=== PATIENT | male | born 1950 | race Caucasian/White ===

== ENCOUNTER 2020-08-29 06:59 | Observation (INO) ==
--- NOTE | 2020-08-21 10:23 | PAT Medication Instructions ---
Medication Instructions Date of Service August 21, 2020 Home Medications acetaminophen [Tylenol Extra Strength] 1,000 mg PO Q6H PRN carvedilol [Coreg] 25 mg PO QAM doxazosin 4 mg PO QAM finasteride 5 mg PO QAM ipratropium bromide [Atrovent HFA] 2 puff INHALATION Q8H PRN lisinopril 20 mg PO QAM metformin 1,000 mg PO BID pantoprazole [Protonix] 40 mg PO QAM sennosides [Senna-C] 8.6 mg PO BID tamsulosin 0.4 mg PO QAM DO NOT take the morning of surgery lisinopril 20 mg PO QAM metformin 1,000 mg PO BID sennosides [Senna-C] 8.6 mg PO BID Take morning of surgery With a small sip of water, OTHERWISE NOTHING TO EAT OR DRINK AFTER MIDNIGHT: acetaminophen [Tylenol Extra Strength] 1,000 mg PO Q6H PRN (if needed, may be taken up to four hours before surgery) carvedilol [Coreg] 25 mg PO QAM doxazosin 4 mg PO QAM finasteride 5 mg PO QAM ipratropium bromide [Atrovent HFA] 2 puff INHALATION Q8H PRN (if needed) pantoprazole [Protonix] 40 mg PO QAM tamsulosin 0.4 mg PO QAM Take evening before surgery acetaminophen [Tylenol Extra Strength] 1,000 mg PO Q6H PRN (if needed) ipratropium bromide [Atrovent HFA] 2 puff INHALATION Q8H PRN (if needed) metformin 1,000 mg PO BID sennosides [Senna-C] 8.6 mg PO BID Other Notes If you have any questions please call us at [phone] or [phone] or [phone] or [phone]
--- NOTE | 2020-08-22 09:59 | Anesthesiology Consultation ---
Date of Service August 22, 2020 Assessment & Plan (1) Encounter for pre-operative examination: - Abnormal preop EKG: Preop EKG done noting ST/TWA, consider inferolateral ischemia. Per 06/2020 PCP records, ? hx of heart failure with diminished EF. No further details. Preop cardiology clearance arranged for 08/26 (LUCERO Saxena). Awaiting cardiology clearance. - Per assessment on 08/22: Travel screen- Lives in [facility]. Uses PPE. No known COVID-19 positive contacts or current COVID-19 related symptoms. Patient states he was personally COVID positive mid-May. Patient states he tested positive while in rehab (he thinks this was [facility]). He says he was acutely ill from other issues (urologic) at time but does not feel any p articular COVID symptoms occurred at time of diagnosis (possibly fatigue > which has since improved since d/c from rehab). Poor historian. DOS is likely >90 days since initial positive COVID test ([facility] secretaries attempting to obtain official report/exact date of initial COVID positive test). Surgeon arranging preop COVID testing (done at [facility] 08/22). Results pending. - PCP office visit: 06/19/20: "Patient was admitted to [facility] on June 13, 2020 with acute renal failure. Patient was thought to have COVID-19 pneumonia and required intermittent dialysis. It was felt that he is acute renal failure secondary to prostate obstruction and he had a Ann catheter placed. Patient was discharged home on June 16, 2020.. Other diagnoses consisting of hepatitis C, anemia, heart failure with decreased ejection fraction of 40 to 45%." - Check BSG AM DOS Chart Review Chart Review: Patient seen in Pre Admission Testing Teaching & Discussion Pre-Anesthesia Teaching/Discussion Notes: Instructed NPO after midnight before surgery,except medications with 15 cc of water. Medication instructions provided according to the [facility] guidelines. History Surgery Operation Date: 08/29/20 12:35 Proposed Procedures p Transurethral Resection Prostate - Matthieu Hernandez DO Height/Weight Height: 5 ft 8 in Weight: 75.3 kg Allergies Allergy/AdvReac Type Severity Reaction Status Date / Time No Known Allergies Allergy Verified 08/15/20 12:17 Medications Home Medications Medication Instructions Recorded Confirmed Last Taken acetaminophen [Tylenol Extra 1,000 mg PO Q6H PRN 08/15/20 08/15/20 Unknown Strength] carvedilol [Coreg] 25 mg PO QAM 08/15/20 08/15/20 Unknown doxazosin 4 mg PO QAM 08/15/20 08/15/20 Unknown finasteride 5 mg PO QAM 08/15/20 08/15/20 Unknown ipratropium bromide [Atrovent HFA] 2 puff INHALATION Q8H PRN 08/15/20 08/15/20 U nknown lisinopril 20 mg PO QAM 08/15/20 08/15/20 Unknown metformin 1,000 mg PO BID 08/15/20 08/15/20 Unknown pantoprazole [Protonix] 40 mg PO QAM 08/15/20 08/15/20 Unknown sennosides [Senna-C] 8.6 mg PO BID 08/15/20 08/15/20 Unknown tamsulosin 0.4 mg PO QAM 08/15/20 08/15/20 Unknown Past Medical History Medical History (Updated 08/22/20 @ 12:04 by Radha Smith) GOOD (acute kidney injury) 06/2020- intermittent dialysis felt 2/2 prostate obstruction > improved kidney function Asthma stable Depression Diabetes mellitus, type 2 NIDDM Enlarged prostate GERD (gastroesophageal reflux disease) Gout hx Hypertension Exercise / Class Metabolic Activity II 4-5 Yardwork/Stairs/Walk up hill Past Surgical History Surgical History History of surgery Repair of leg muscles (25 years ago) Past Anesthesia History No Hx of Anesthesia Complications and No Family Hx of Anesthesia Complications History of PONV No Hx of PONV and No Hx of Motion Sickness Social History Smoking Status: Former smoker Do You Dip or Chew Tobacco: No Smoking End Date: Quit 5 years ago Hx Alcohol Use: No Hx Substance Use: No Review of Systems + occasional snoring. No apnea events. Patient denies chest pain, shortness of breath, dyspnea on exertion, fever, chills, cough, wheezing, palpitations. Physical Exam Vital Signs VITALS BP 145/89 P 84 TEMP 97.9 SP02 99%RA RESP 16 PHYSICAL Full neck and c-spine range of motion. Full TMJ range of motion. TMD 2 finger breaths Mallampati Score 3 Dentition: several missing sides/molars Lungs: clear throughout to auscultation Cardiac: regular rate and rhythm, no murmurs noted Spine: normal Carotid arteries: negative bruit Extremities: no edema Testing Laboratory Results 08/22/20 10:14 08/22/20 11:04 Hemoglobin A1c 6.4 % (4.5-5.6) H 08/22/20 10:14 Urine Color Yellow 08/22/20 Unknown Urine Appearance Cloudy (Clear) A 08/22/20 Unknown Urine pH 8.0 (4.5-7.5) H 08/22/20 Unknown Ur Specific Burton 1.018 (1.000-1.030) 08/22/20 Unknown Urine Protein 2+ (Negative) H 08/22/20 Unknown Urine Glucose (UA) Negative (Negative) 08/22/20 Unknown Urine Ketones Negative (Negative) 08/22/20 Unknown Urine Nitrite Positive (Negative) A 08/22/20 Unknown Ur Leukocyte Esterase 3+ (Negative) H 08/22/20 Unknown Urine WBC (Auto) >30 /hpf (0-5) H 08/22/20 Unknown Urine RBC (Auto) 5-10 /hpf (0-4) H 08/22/20 Unknown U Hyaline Cast (Auto) 5-10 /lpf (0-5) H 08/22/20 Unknown U Epithel Cells (Auto) 10-20 /lpf (0-5) H 08/22/20 Unknown Urine Bacteria (Auto) 2+ (Negative) H 08/22/20 Unknown Electrocardiogram Date: 08/22/[address]/TWA, consider inferolateral ischemia. Chest X-Ray Date: 08/22/20 FINDINGS: Cardiac silhouette is normal in size. There is a mildly tortuous thoracic aorta. Bibasilar interstitial thickening. This is likely chronic. Otherwise, no focal lung consolidations to suggest pneumonia. No evidence for pulmonary edema. IMPRESSION: Mild bibasilar interstitial thickening which is likely chronic. Otherwise, no acute process within the chest.
--- NOTE | 2020-08-22 11:01 | XRay Report ---
XR chest Pre-admission PA/Lat HISTORY: preop COMPARISON: None. FINDINGS: Cardiac silhouette is normal in size. There is a mildly tortuous thoracic aorta. Bibasilar interstitial thickening. This is likely chronic. Otherwise, no focal lung consolidations to suggest p neumonia. No evidence for pulmonary edema. IMPRESSION: Mild bibasilar interstitial thickening which is likely chronic. Otherwise, no acute process within th e chest. ACT 112: Negative or not required by law. Electronically signed by: David Downey M.D. 08/22/2020 11:00 AM
[2020-08-22 11:04] LABS: Basophils # (auto) 0.02 K/uL (0-0.2); Basophils % (auto) 0.2 %; Eosinophils # (auto) 0.19 K/uL (0-0.5); Eosinophils % (auto) 2.1 %; Hematocrit (blood only) 39.3 % (42-52); Hemoglobin 13.5 g/dL (14.0-18.0); Immature Granulocytes # (auto) 0.02 K/uL (0.00-0.02); Immature Granulocytes % (auto) 0.2 %; Lymphocytes # (auto) 1.73 K/uL (1.2-3.4); Lymphocytes % (auto) 19.4 %; Mean Corpuscular Hemoglobin 30.7 pg (25-34); Mean Corpuscular Hgb Conc 34.4 g/dL (32-36); Mean Corpuscular Volume 89.3 fL (80-100); Mean Platelet Volume 9.3 fL (7.4-10.4); Monocytes # (auto) 0.63 K/uL (0.11-0.59); Monocytes % (auto) 7.1 %; Neutrophils # (auto) 6.31 K/uL (1.4-6.5); Platelet Count 211 K/uL (130-400); RDW Coefficient of Variation 15.8 % (11.5-14.5); RDW Standard Deviation 51.2 fL (36.4-46.3)
--- NOTE | 2020-08-22 11:40 | Electrocardiogram Report ---
Test Reason : Blood Pressure : / mmHG Vent. Rate : 082 BPM Atrial Rate : 082 BPM P-R Int : 130 ms QRS Dur : 102 ms QT Int : 416 ms P-R-T Axes : 057 -18 -81 degrees QTc Int : 486 ms Normal sinus rhythm Abnormal ECG No previous ECGs available Confirmed by Praveen Burns ([id number]) on 08/22/2020 11:40:29 AM Referred By: Matthieu Hernandez Confirmed By:Praveen Burns
[2020-08-22 12:02] LABS: Estimated Average Glucose 137 mg/dl; Hemoglobin A1C 6.4 % (4.5-5.6)
[2020-08-22 12:07] LABS: Appearance Urine Cloudy (Clear); Bacteria Urine Automated 2+ (Negative); Bilirubin Urine Negative (Negative); Blood Urine 1+ (Negative); Color Urine Yellow; Glucose Urine UA Negative (Negative); Ketones Urine Negative (Negative); Leukocyte Esterase Urine 3+ (Negative); Nitrite Urine Positive (Negative); Specific Gravity Urine 1.018 (1.000-1.030); Urobilinogen Urine Negative (Negative); WBC Urine Automated >30 /hpf (0-5)
[2020-08-22 12:09] LABS: Protein Urine 2+ (Negative)
[2020-08-22 12:35] LABS: BUN Creatinine Ratio 30.3 (10-20); Calcium 9.7 mg/dl (8.5-10.1); Est GFR (African American) 102.6; Est GFR (Non-African American) 88.5; Potassium 4.1 mmol/L (3.5-5.1)
[2020-08-22 12:38] LABS: Calcium Oxalate Crystals Urine Present (None Prsent)
[~2020-08-29 06:59] MED LIST: LACTATED RINGER'S 1,000 ML IV SCH; ceFAZolin 2000MG 2,000 MG/15 ML SYR IV SCH
[2020-08-29] MEDS ORDERED: MoRPHine SULFATE 2 MG/ML CARP IV PRN (08:41)
[2020-08-29] MEDS ORDERED: oxyCODONE/ACETAMINOPHEN 5mg/325mg TAB PO PRN (08:41)
[2020-08-29] MEDS ORDERED: IPRATROPIUM BROMIDE HFA INHALER INH PRN (08:41)
--- NOTE | 2020-08-29 08:41 | History & Physical Bridge Note ---
Date of Service August 29, 2020 History & Physical Bridge Note I have examined the patient, reviewed the History & Physical and in the interval since the performance of the History & Physical I have noted the following changes of clinical significance: no changes noted
[2020-08-29] MEDS ORDERED: BELLADONNA/OPIUM SUPP 60 MG SUPP PR PRN (08:52)
[2020-08-29] MEDS ORDERED: PHENAZOPYRIDINE HCL 200 MG TAB PO PRN (08:52)
[2020-08-29] MEDS ORDERED: ONDANSETRON INJ 2 MG/ML 2 ML VIAL IV PRN ×2 (08:52→11:30)
[2020-08-29 10:11] LABS: Basophils # (auto) 0.01 K/uL (0-0.2); Basophils % (auto) 0.1 %; Eosinophils # (auto) 0.03 K/uL (0-0.5); Eosinophils % (auto) 0.4 %; Hematocrit (blood only) 40.6 % (42-52); Immature Granulocytes # (auto) 0.02 K/uL (0.00-0.02); Immature Granulocytes % (auto) 0.3 %; Lymphocytes # (auto) 1.77 K/uL (1.2-3.4); Lymphocytes % (auto) 22.9 %; Mean Corpuscular Hgb Conc 34.5 g/dL (32-36); Mean Corpuscular Volume 89.8 fL (80-100); Mean Platelet Volume 9.1 fL (7.4-10.4); Monocytes # (auto) 0.63 K/uL (0.11-0.59); Monocytes % (auto) 8.1 %; Neutrophils # (auto) 5.28 K/uL (1.4-6.5); Neutrophils % (auto) 68.2 %; Platelet Count 195 K/uL (130-400); RDW Coefficient of Variation 15.4 % (11.5-14.5); RDW Standard Deviation 50.8 fL (36.4-46.3); Red Blood Count 4.52 M/uL (4.7-6.1); White Blood Count 7.74 K/uL (4.8-10.8)
[2020-08-29 10:36] LABS: BUN Creatinine Ratio 30.8 (10-20); Creatinine Clr Calc Pharmacy 89.8 ml/min; Est GFR (African American) 108.2; Est GFR (Non-African American) 93.3
[2020-08-29] MEDS ORDERED: ATROPINE SULFATE 0.1 MG/ML 10ML SYR IV PRN (11:30)
[2020-08-29] MEDS ORDERED: fentaNYL citrate 100 MCG/2 ML VIAL IV PRN (11:30)
[2020-08-29] MEDS ORDERED: LABETALOL HCL IV 5 MG/ML 20ML IV PRN (11:30)
[2020-08-29] MEDS ORDERED: PROPOFOL IV EMULSION 10 MG/ML 20 ML VIAL IV ONE (11:33)
[2020-08-29] MEDS ORDERED: LIDOCAINE HCL 2% 2 ML VIAL/AMP(20MG/ML) INFIL ONE (11:33)
[2020-08-29] MEDS ORDERED: ONDANSETRON INJ 2 MG/ML 2 ML VIAL ONE (11:33)
[2020-08-29] MEDS ORDERED: PHENYLEPHRINE 100MCG/ML 5ML SYR ONE (11:33)
[2020-08-29] MEDS ORDERED: ePHEDrine sulfate 50 MG/ML SYR ONE (11:33)
[2020-08-29] MEDS ORDERED: fentaNYL citrate 100 MCG/2 ML VIAL ONE (11:34)
[2020-08-29] MEDS ORDERED: MIDAZOLAM HCL 1 MG/ML 2ML VIAL ONE (11:34)
[2020-08-29] MEDS ORDERED: DEXAMETHASONE SOD INJ 4 MG/ML VIAL ONE (12:50)
--- NOTE | 2020-08-29 15:24 | Operative Report ---
PG Post Operative Report Pre & Post Diagnosis Operation Date: 08/29/20 11:25 Pre-Op Diagnosis: Gross Hematuria Post-Op Diagnosis: Gross Hematuria I identified the patient and participated in the time-out.: Yes Procedure Operation Date: 08/29/20 11:25 Actual Procedures p Transurethral Resection and Enucleation of Prostate(Not Applicable) - Matthieu Hernandez DO Surgeon Matthieu Hernandez, II, DO Bridge Worker Apprentice None Estimated Blood Loss 15 Findings Consistent with Post-Op Diagnosis Large Prostate with obstruction and large prostatic varicosity. Specimens Prostate adenoma. Drains 26Fr 3way Catheter Anesthesia Type General Complications none Disposition Disposition: Recovery Room Indications Patient with obstruction due to prostate enlargement. Risks and benefits discussed at length. Description of Procedure Patient was consented and brought back to the operating room. Patient was placed under anesthesia in the supine position and moved to the dorsal lithotomy position. Patient was prepped and draped in the regular sterile fashion. A time out was completed. A 30degree Cystoscope was placed into the bladder and the entire bladder was examined. The UO's were identified as well as the bladder neck, trigone, dome, and the other important landmarks. The prostatic urethra and large lobes/ad enoma was assessed and the veru and bladder neck identified and area/size was assessed. Massive enlargement of the left lateral lobe was noted. Large amount of prostate was projecting into the bladder. The resection scope was placed and the fine bipolar loop was selected. Starting at the 5 and 7 o'clock positions, a channel was created from bladder neck to the veru. The right lateral lobe was resected from 11 o'clock down to the channel. The left lateral lobe was resected from the 1 o'clock position to the channel. An extremely large projection into the bladder was resected down from the capsule and was able to be enucleated. The adenoma was flushed into the bladder. The remainder of the lateral lobe was resected further. The Specimen was removed and sent for analysis. The large enucleated lobe was then resected while in the bladder into 3 pieces. Two of these pieces were able to be grasped and removed. The 3rd piece was too large and resected to small pieces and were flushed. The two enucleated pieces were sent separately. The resection bed and any bleeding areas were fulgurated/cauterized and the entire area inspected. All bleeding was controlled. The bladder was inspected a final time. The bladder was emptied and irrigated. All specimen and debris was removed. The scope was removed with the bladder partially full. A catheter was placed and balloon elevated. This was easily irrigated. This was set to continuous irrigation. The patient was cleaned, aroused from anesthesia, and transferred to the pacu in stable condition having tolerated the procedure well with no complications. I was present and participated in all aspects of the procedure. The patient will be monitored in the PACU until transferred. I attest to the content of the Intraoperative Record and any orders documented therein. Any exceptions are noted below.
--- NOTE | 2020-08-29 16:49 | Anesthesiology Progress Note ---
Date of Service August 29, 2020 Anesthesia Post Procedure Vital Signs Vital Signs: Temp Pulse Pulse Resp BP Pulse Ox 08/29/20 16:35 75 18 151/88 H 97 08/29/20 16:25 73 21 148/86 H 95 08/29/20 16:15 76 22 155/87 H 93 08/29/20 16:05 36.3 C L 78 17 143/76 H 93 08/29/20 15:55 36.3 C L 78 16 142/83 H 97 08/29/20 15:45 36.3 C L 83 20 140/86 97 08/29/20 15:35 85 18 145/88 H 95 08/29/20 15:25 85 19 139/84 95 08/29/20 15:17 36.2 C L 90 22 136/97 95 08/29/20 08:10 36.6 C 78 18 169/92 H 98 Transfer of Care Handoff Completed per policy Notes Mental Status: alert / awake / arousable Patient Amnestic to Procedure: Yes Nausea / Vomiting: adequately controlled Pain: adequately controlled Airway Patency, RR, SpO2: stable & adequate BP & HR: stable & adequate Hydration State: stable & adequate Anesthetic Complications: no major complications apparent
[2020-08-29 18:19] LABS: Hematocrit (blood only) 36.5 % (42-52); Hemoglobin 12.4 g/dL (14.0-18.0); Mean Corpuscular Hemoglobin 30.7 pg (25-34); Mean Corpuscular Volume 90.3 fL (80-100); Mean Platelet Volume 8.7 fL (7.4-10.4); Platelet Count 156 K/uL (130-400); RDW Coefficient of Variation 15.7 % (11.5-14.5); RDW Standard Deviation 52.1 fL (36.4-46.3); Red Blood Count 4.04 M/uL (4.7-6.1); White Blood Count 11.04 K/uL (4.8-10.8)
[2020-08-29] MEDS: SODIUM CHLORIDE 0.9% 1000ML 1,000 ML IV SCH (18:30)
[2020-08-29 19:00] LABS: BUN Creatinine Ratio 29.4 (10-20); Creatinine Clr Calc Pharmacy 117.1 ml/min; Est GFR (African American) 120.6; Est GFR (Non-African American) 104.1; Potassium 4.2 mmol/L (3.5-5.1)
[2020-08-29] MEDS: SENNA 8.6 MG TAB PO SCH (20:14)
[2020-08-29] MEDS: FINASTERIDE 5 MG TAB PO SCH (20:14)
[2020-08-29] MEDS: DOXAZosin MESYLATE 4 MG TAB PO SCH (20:14)
[2020-08-29] MEDS: PANTOprazole 40 MG TAB PO SCH (20:15)
[2020-08-29] MEDS: carvediloL 25 MG TAB PO SCH (20:15)
[2020-08-29] MEDS: DOCUSATE SODIUM 100 MG CAP PO SCH (20:15)
[2020-08-29] MEDS: ceFAZolin 1000MG 1,000 MG/7.5 ML SYR IV SCH (20:15)
[2020-08-30] MEDS: ceFAZolin 1000MG 1,000 MG/7.5 ML SYR IV SCH ×2 (05:27→12:04)
[2020-08-30 06:45] LABS: Hematocrit (blood only) 32.8 % (42-52); Hemoglobin 11.3 g/dL (14.0-18.0); Mean Corpuscular Hemoglobin 30.9 pg (25-34); Mean Corpuscular Hgb Conc 34.5 g/dL (32-36); Mean Corpuscular Volume 89.6 fL (80-100); Platelet Count 169 K/uL (130-400); RDW Coefficient of Variation 15.5 % (11.5-14.5); RDW Standard Deviation 50.4 fL (36.4-46.3); Red Blood Count 3.66 M/uL (4.7-6.1); White Blood Count 11.46 K/uL (4.8-10.8)
[2020-08-30 07:18] LABS: BUN Creatinine Ratio 20.5 (10-20); Calcium 7.4 mg/dl (8.5-10.1); Creatinine Clr Calc Pharmacy 102.4 ml/min; Est GFR (African American) 114.2; Est GFR (Non-African American) 98.5; Potassium 3.8 mmol/L (3.5-5.1)
[2020-08-30] MEDS: PANTOprazole 40 MG TAB PO SCH (08:07)
[2020-08-30] MEDS: DOXAZosin MESYLATE 4 MG TAB PO SCH (08:07)
[2020-08-30] MEDS: FINASTERIDE 5 MG TAB PO SCH (08:07)
[2020-08-30] MEDS: SENNA 8.6 MG TAB PO SCH ×2 (08:07→08:11)
[2020-08-30] MEDS: carvediloL 25 MG TAB PO SCH (08:08)
[2020-08-30] MEDS: DOCUSATE SODIUM 100 MG CAP PO SCH (08:08)
[2020-08-30] MEDS ORDERED: carvediloL 25 MG TAB PO SCH (09:00)
--- NOTE | 2020-08-30 09:00 | Urology Progress Note ---
Date of Service August 30, 2020 Assessment & Plan (1) Retention of urine, unspecified: (2) Hematuria, gross: 70 yo M POD#1 s/p TURP with Dr. Hernandez. - Doing well, progressing as expected - Afebrile, VSS, labs reviewed and as expected - Tolerating diet - No issues with pain - Encourage OOB, incentive spirometer - Ann draining clear with slight pink-tinged urine with CBI on slow, CBI clamped during exam @0835. Reassess later this AM. - Anticipate d/c to home today if he continues to progress as expected - Maintain Ann catheter 7-10 days - Complete course of Keflex 500 mg BID x 7 days - Expected clinical course reviewed, all questions answered. - Will arrange appropriate outpatient follow-up with our service Pt reassessed @1100. Ann intact, patent, and draining pink to light gamble red urine, no clots, with CBI clamped. Pt feels ready for discharge, orders placed. Admission and Anticipated Discharge Date Admission Date: August 29, 2020 Subjective 70 yo M POD#1 s/p TURP with Dr. Hernandez. Pt seen and examined at bedside this AM. Awake, alert and resting in bed. No issues overnight. Offers no complaints at present. Denies pain. Did not utilize any pain medication overnight. Tolerating Ann catheter without bother. No manual irrigation needed overnight. Ann intact, patent, and draining clear urine with slight pink tinge with CBI on slow. CBI clamped during exam at 0835. Tolerating diet, no nausea or vomiting. Reports BM overnight. No fever or chills. Chart review: Afebrile Creatinine 0.64 WBC 11.46 Hgb 11.3 On IV Ceftriaxone VS - BP 116/70, HR 78, Resp 16, Temp 36.7, O2 sat 95% on RA No additional concerns today. Review of Systems Constitutional: as per Subjective / HPI Gastrointestinal: as per Subjective / HPI Genitourinary: + as per Subjective / HPI Physical Exam Constitutional: well developed and well nourished; no acute distress and not ill appearing Respiratory: normal respiratory effort and able to speak in complete sentences; no respiratory distress and no labored breathing Cardiovascular: Extremities: no calf tenderness and no pedal edema Gastrointestinal (Abdomen): Inspection/Auscultation: abdomen normal to inspection; abdomen not distended Percussion/Palpation: abdomen soft; abdomen nontender and no guarding Musculoskeletal: Head/Neck/Chest: normocephalic and head atraumatic Extremities: extremities normal to inspection Skin: no rashes, warm and dry Neurologic: moves all extremities and awake Psychiatric: A+Ox3, euthymic affect Genitourinary: no CVA tenderness Ann intact, patent, and draining clear urine with slight pink tinge with CBI on slow. CBI clamped at 0835 during exam. Results & Data ([facility]) Vital Signs (Past 12 Hours) Vital Signs Temp Pulse Pulse Resp BP Pulse Ox 08/30/20 07:54 36.7 C 78 16 116/70 95 08/30/20 03:41 36.5 C 68 18 177/68 H 96 08/29/20 23:00 36.4 C L 77 18 144/81 H 94 PG Care Time/CCT Total # of Minutes Spent Total Time Spent with Patient: Total time spent is greater than 50% in coordination of care (as documented) at patient's floor/unit and/or counseling patient: Coding Level of Care Code 08798 Subseq Hosp Care Lvl 2 Diagnoses Retention of urine, unspecified R33.9 Hematuria, gross R31.0
[2020-08-30] MEDS: SODIUM CHLORIDE 0.9% 1000ML 1,000 ML IV SCH ×2 (10:13→12:03)
[2020-08-30] MEDS ORDERED: INSULIN ASPART 100 UNITS/ML 3 ML PEN SC SCH (11:30)
--- NOTE | 2020-08-30 12:11 | Hospitalist Consultation ---
Date of Consultation August 30, 2020 Assessment & Plan (1) BPH NOS w ur obs/LUTS: The patient is status post TUR procedure August 29. Ann catheter is in place. Urology management (2) HTN (hypertension): Controlled with carvedilol, doxazosin, lisinopril. Stable Present on Admission?: Yes (3) Type 2 diabetes mellitus: Metformin is currently on hold. ADA diet. Sliding scale insulin coverage. Restart Metformin at discharge Present on Admission?: Yes (4) GERD (gastroesophageal reflux disease): Protonix therapy Disposition: Possible discharge to home later today by urology Present on Admission?: Yes History of Present Illness Reason for Consultation: Medical management Attending Physician: Matthieu Hernandez II, DO History of Present Illness 70-year-old male with a history of benign prostatic hypertrophy with obstruction and hematuria. He underwent TURP procedure August 29 by urology. He has a history of hypertension, type 2 diabetes, GERD. He was seen earlier today and is hemodynamically stable and overall medically stable. Appropriate medications have been ordered. He possibly will be discharged later today by urology with Ann catheter in place Allergies Allergy/AdvReac Type Severity Reaction Status Date / Time No Known Allergies Allergy Verified 08/15/20 12:17 Home Medications Medication Instructions Recorded Confirmed Type acetaminophen [Tylenol Extra 1,000 mg PO Q6H PRN 08/15/20 08/15/20 History Strength] carvedilol [Coreg] 25 mg PO QAM 08/15/20 08/15/20 History doxazosin 4 mg PO QAM 08/15/20 08/29/20 History finasteride 5 mg PO QAM 08/15/20 08/29/20 History ipratropium bromide [Atrovent HFA] 2 puff INHALATION Q8H PRN 08/15/20 08/29/20 History lisinopril 20 mg PO QAM 08/15/20 08/29/20 History metformin 1,000 mg PO BID 08/15/20 08/29/20 History pantoprazole [Protonix] 40 mg PO QAM 08/15/20 08/29/20 History sennosides [Senna-C] 8.6 mg PO BID 08/15/20 08/29/20 History tamsulosin 0.4 mg PO QAM 08/15/20 08/29/20 History cephalexin 500 mg tablet 500 mg PO BID 7 Days #14 tab 08/26/20 08/29/20 Rx docusate sodium [Colace] 100 mg PO BID #60 cap 08/30/20 Rx oxycodone-acetaminophen [Percocet] 1 tab PO TID PRN #7 tab 08/30/20 Rx Patient History Medical History (Updated 08/30/20 @ 12:09 by Fran Mittal MD) GOOD (acute kidney injury) 06/2020- intermittent dialysis felt 2/2 prostate obstruction > improved kidney function Asthma stable Depression Diabetes mellitus, type 2 NIDDM Enlarged prostate GERD (gastroesophageal reflux disease) Gout hx Hypertension Surgical History History of surgery Repair of leg muscles (25 years ago) Social History Smoking Status: Former smoker 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); Hx Alcohol Use: No Hx Substance Use: No Preferred Language: Croatian Communication Ability: Effective Criminology Teacher Required: No Beliefs That Will Affect Care: None Current Living Situation: Alone Feels Safe at Home: Yes Assistive Devices: Glasses Review of Systems Review of Systems: Constitutional-no fever or chills ENT-no blurred vision, no double vision, no epistaxis, no sore throat Respiratory-no cough, no wheezing, no shortness of breath Cardiac-no palpitations, no chest pain, no syncope GI-no nausea, vomiting, diarrhea, melena, hematochezia -Ann catheter in place after TUR procedure. Hematuria noted. Musculoskeletal-no joint pain, no muscle tenderness Skin-no bruising, no rashes, no pruritus Neuro-no isolated weakness, no paresthesia, no weakness Psych-no depression, no anxiety Physical Exam Physical Exam: General-alert and oriented x3, no fevers, no chills HEENT-head atraumatic and normocephalic, TMs intact bilaterally, pupils equal and reactive to light, extraocular muscles intact Neck-no lymphadenopathy or thyromegaly, trachea midline Chest-clear to auscultation percussion. No rales wheezing or rhonchi Cardiac-regular rate and rhythm, normal S1 and S2, no murmurs Abdomen-normal bowel sounds, nontender, no hepatosplenomegaly Extremities-no cyanosis, clubbing, or edema Neuro-cranial nerves II through XII intact, motor and sensory function within normal limits, strength symmetrical 5/5, no focal deficits Psych-normal affect, normal mood Results & Data Results & Data ([facility]) Vital Signs (Past 12 Hours) Vital Signs Temp Pulse Pulse Pulse Resp BP Pulse Ox 08/30/20 11:16 36.5 C 75 18 118/65 96 08/30/20 08:00 78 08/30/20 07:54 36.7 C 78 16 116/70 95 08/30/20 03:41 36.5 C 68 18 177/68 H 96 Laboratory Results 08/30/20 06:19 08/30/20 06:19 PG Care Time/CCT Total # of Minutes Spent Total Time Spent with Patient: Total time spent is greater than 50% in coordination of care (as documented) at patient's floor/unit and/or counseling patient: Coding Level of Care Code 51942 Inpt Consult Level 4 Diagnoses BPH NOS w ur obs/LUTS N40.1 HTN (hypertension) I10 Type 2 diabetes mellitus E11.9 GERD (gastroesophageal reflux disease) K21.9
--- NOTE | 2020-08-30 12:58 | Discharge Summary ---
Date of Service August 30, 2020 Admission HPI Per Admitting Provider Patient admitted for TURP secondary to BPH with obstruction and gross hematuria. Admission Exam Per Admitting Provider General: Alert in no acute distress. HEENT: Normocephalic Atraumatic. Inspection normal. Psychologic: Normal affect. Respiratory: Nonlabored. Cardiovascular: No tachycardia Skin: [place] and Dry. Principal Diagnosis BPH with obstruction, gross hematuria Discharge Exam General: Alert in no acute distress. HEENT: Normocephalic Atraumatic. Inspection normal. Psychologic: Normal affect. Skin: [place] and Dry. No rashes or visible lesions. Abdomen: Soft Non-distended. No rebound or guarding. Constitutional well developed and well nourished; no acute distress and not ill appearing Respiratory normal respiratory effort and able to speak in complete sentences; no respiratory distress and no labored breathing Cardiovascular Extremities: no calf tenderness and no pedal edema Gastrointestinal (Abdomen) Inspection/Auscultation: abdomen normal to inspection; abdomen not distended Percussion/Palpation: abdomen soft; abdomen nontender and no guarding Musculoskeletal Head/Neck/Chest: normocephalic and head atraumatic Extremities: extremities normal to inspection Skin no rashes, warm and dry Neurologic moves all extremities and awake Psychiatric A+Ox3, euthymic affect Genitourinary no CVA tenderness Ann catheter intact, patent and draining light gamble red urine without clots, CBI clamped Discharge Data Allergies Allergy/AdvReac Type Severity Reaction Status Date / Time No Known Allergies Allergy Verified 08/15/20 12:17 Consultations 08/29/20 08:52 Consult Hospitalist Routine 08/29/20 15:37 Consult Case Management - Discharge Planning Routine Procedures Performed Operation Date: 08/29/20 11:25 Actual Procedures p Transurethral Resection Prostate, Enucleation of Prostate(Not Applicable) - Matthieu Hernandez, DO Hospital Course (1) Retention of urine, unspecified: (2) Hematuria, gross: 70 yo M POD#1 s/p TURP with Dr. Hernandez. - Doing well, progressing as expected - Afebrile, VSS, labs reviewed and as expected - Tolerating diet - No issues with pain - Encourage OOB, incentive spirometer - Ann draining clear with slight pink-tinged urine with CBI on slow, CBI clamped during exam @0835. Reassess later this AM. - Anticipate d/c to home today if he continues to progress as expected - Maintain Ann catheter 7-10 days - Complete course of Keflex 500 mg BID x 7 days - Expected clinical course reviewed, all questions answered. - Will arrange appropriate outpatient follow-up with our service Pt reassessed @1100. Ann intact, patent, and draining pink to light gamble red urine, no clots, with CBI clamped. Pt feels ready for discharge, orders placed. Total Time Total Time Spent Total Time Spent (In Minutes): 10 minutes Total Time Includes: Examination of the Patient, Discharge Planning, Medication Reconciliation and Communication With Other Providers Discharge Plan Discharge Items Patient Disposition: Home - Self-Care Reason For Visit: BPH WITH OBSTRUCTION Discharge Diagnosis: BPH with obstruction Activity: Per Instructions section Lifting: No more than 25 pounds Bathing Comment: Okay to shower in 1 day, no tub bath or soaking Sexual Activity: Wait until after follow-up appointment Exercise/Sports: Wait until after follow-up appointment Driving/Machine Use: No driving while taking prescription pain medication Non-emergency contact: Urologist Call non-emergency contact if: your pain is not controlled, your pain is worsening, your pain is unusual for you, your pain is concerning for you, you have a fever and your temperature is above 101 Follow-up/Referrals: Matthieu Hernandez DO [Physician] - 09/24/20 9:00 am (Virtual check-in (phone call between 9 am and 4 pm)) [facility],Nurse [FAKE FOR SCHEDULES] - 09/05/20 11:00 am Diet: Carb Consistent or DM2 Addtl Attending Provider Instructions: Please take all medications as prescribed and keep all follow-ups as scheduled. Please call our office at [phone] with any questions, concerns or need to reschedule appointments for any reason. We are happy to assist you. Complete your Cephalexin as directed. Tips for your recovery at home: Dont be alarmed by brownish or reddish blood or clots in your urine. This is a result of the procedure. This may occur off and on for weeks to months after the procedure but should continue to improve. Drink plenty of fluids during the day (enough to keep your urine very light colored). This will help keep a healthy flow of urine. Do not lift >25 lbs until your followup Avoid constipation. Please use a stool softener (Colace) for the first two weeks after your procedure Be sure to finish the antibiotics as prescribed. If you go home with a catheter, please wash tubing where it enters your body twice daily with mild soap (Dove or Dial). Once your catheter is removed, expect some blood in your urine and some burning when you urinate. You should have an appointment to have this removed, if you do not please call our office to arrange. Pending Studies at Discharge: Yes Stand-Alone Forms: [facility] [place], Smoking Cessation Medications and DC Order Prescriptions: New oxycodone-acetaminophen [Percocet] 5-325 mg tablet 1 tab PO TID PRN (Reason: pain) Qty: 7 RF: 0 docusate sodium [Colace] 100 mg capsule 100 mg PO BID Qty: 60 RF: 0 Continued cephalexin 500 mg tablet 500 mg PO BID 7 Days Qty: 14 RF: 0 finasteride 5 mg tablet 5 mg PO QAM RF: 0 metformin 500 mg Tablet 1,000 mg PO BID RF: 0 carvedilol [Coreg] 25 mg Tablet 25 mg PO QAM RF: 0 sennosides 8.6 mg Tablet 8.6 mg PO BID RF: 0 lisinopril 20 mg Tablet 20 mg PO QAM RF: 0 pantoprazole [Protonix] 40 mg Tablet,Delayed Release (Dr/Ec) 40 mg PO QAM RF: 0 doxazosin 4 mg Tablet 4 mg PO QAM RF: 0 Atrovent HFA 17 mcg/actuation Hfa Aerosol Inhaler 2 puff INHALATION Q8H PRN (Reason: Wheezing) RF: 0 acetaminophen 500 mg Capsule 1,000 mg PO Q6H PRN (Reason: Pain) RF: 0 Discontinued tamsulosin 0.4 mg capsule 0.4 mg PO QAM RF: 0 Discharge Orders: Discharge Order (Routine); Ordered 08/30/20 Ordered By: Terri Sanchez/Other Patient Handouts: Managing Type 2 Diabetes, Managing Diabetes: The A1C Test Admission Data Admit Date/Time: 08/29/20 08:41 Attending Provider: Matthieu Hernandez Admit Provider: Matthieu Hernandez Primary Care Provider: Erin Solano Other Providers: Shakir Franco ; Sarah Lindsey ; Aashish Peraza ; Fran Mittal ; Radha Singleton ; Titus Dey ; Loco Graham ; Joao Qureshi ; Radha Sanon ; Inge Rankin ; Natalia Louise ; Gurvinder De Leon ; Cheryl Rivas ; Omayra Palacio ; Keith Gonzalez ; Branden Stanford ; Verenice Bourgeois ; Ernst Bacon ; Riaz Martinez ; Sarah Mixon ; Jose Martin Valentine ; Aashish Alcazar ; Antoine Salazar ; Bernadette Rockwell ; Alvin Cheney ; Lc Degroot. Other Interventions: Discharge Summary Assessment (RN) Last Done: 08/30/20 12:19 Coding Level of Care Code D/C Day Management <30 mins Diagnoses Retention of urine, unspecified R33.9 Hematuria, gross R31.0
== END 2020-08-30 14:00 | disposition home or self-care (01) ==
LOC: 2W 06:59 → ASU 06:59